=== PATIENT | female | born 1955 | race Caucasian/White ===

== ENCOUNTER 2024-11-10 09:03 | Day surgery (SDC) | payer MEDICARE, OTHER ==
[~2024-11-10 09:03] MED LIST: Sodium Chloride 0.9% 10 ML Syringe FLUSH PRN; Sodium Chloride 0.9% 10 ML Syringe FLUSH SCH
[2024-11-10] MEDS: Lactated Ringers 1,000 ML IV SCH (09:14)
[2024-11-10] MEDS ORDERED: Midazolam 1 MG/ML 2 ML SDV ONE (09:16)
[2024-11-10] MEDS ORDERED: Propofol 200 MG/20 ML SDV ONE (09:58)
[2024-11-10] MEDS ORDERED: Lidocaine 1% 2 ML ONE (10:00)
== END 2024-11-10 12:25 | disposition home or self-care (01) ==
LOC: JD.SDS 09:03
PROVIDERS: ATTEND Surgery
DX: Z12.11 Encounter for screening for malignant neoplasm of colon (principal); K29.50 Unspecified chronic gastritis without bleeding; K64.8 Other hemorrhoids; K21.9 Gastro-esophageal reflux disease without esophagitis; Z86.0101 Personal history of adenomatous and serrated colon polyps; Z80.0 Family history of malignant neoplasm of digestive organs
CPT/HCPCS: 43239; 88305; G0105; J2250; J2704; J7120; J3490